=== PATIENT | male | born 1985 | race African-American/Black ===

== ENCOUNTER 2018-07-15 12:36 | Emergency (ER) | payer MEDICAID, OTHER ==
[~2018-07-15] VITALS: Ht 180.3 cm; Wt 127.0 kg
[2018-07-15 13:10] VITALS: BP 122/75
[2018-07-15 15:14] LABS: Urine Bacteria NONE SEEN /hpf (None Seen); Urine Blood Negative /uL (Negative); Urine Mucus FEW (None Seen); Urine Specific Gravity 1.037 (1.001-1.035); Urine Sperm PRESENT /hpf (None Seen); Urine WBC 1 /hpf (0 - 3)
[2018-07-15] MEDS ORDERED: HYDROcodone-ACET 7.5/325MG TAB PO ONE (15:45)
[2018-07-15] MEDS ORDERED: ONDANSETRON ODT 4 MG TAB PO ONE (15:45)
== END 2018-07-15 15:46 | disposition left against medical advice (07) ==
LOC: ER 12:36
DX: K52.9 Noninfective gastroenteritis and colitis, unspecified (principal); G89.29 Other chronic pain; M54.5 Low back pain; K76.0 Fatty (change of) liver, not elsewhere classified
CPT/HCPCS: 74176; 81001; 99284; Q0162